=== PATIENT | male | born 1935 | race Caucasian/White ===

== ENCOUNTER 2016-11-17 13:42 | Observation (INO) | payer OTHER ==
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
--- NOTE | 2016-11-17 14:53 | CPEKG ---
Heart Rate: 75 RR Interval: 800 P-R Interval: 200 QRSD Interval: 148 QT Interval: 460 QTC Interval: 514 P [place]: 45 QRS [place]: -35 T Wave [place]: 78 EKG Severity - ABNORMAL ECG - EKG Impression: SINUS RHYTHM EKG Impression: LEFT BUNDLE BRANCH BLOCK Electronically Signed By: Chris Robbins 17-Nov-2016 15:28:51
[2016-11-17 15:17] LABS: APTT 30.2 SEC (23.0-38.0); INR 1.13 (0.83-1.16); PROTIME(PATIENT) 14.4 SEC (12.0-15.0)
[2016-11-17 15:33] LABS: % IMMATURE GRANULYOCYTES 1.1 % (0.0-1.1); ABSOLUTE IMMATURE GRANULOCYTES 0.07 10^3/uL (0.00-0.10); ADD DIFF? NO; ADD MORPH? NO; ADD SCAN? NO; ATYPICAL LYMPHOCYTE FLAG 10 (0-99); FRAGMENT RBC FLAG 0 (0-99); HEMATOCRIT 41.6 % (40.0-51.0); HEMOGLOBIN 14.1 g/dL (13.7-17.5); LEFT SHIFT FLG 10 (0-99); LIPEMIA HEMOLYSIS FLAG 90 (0-99); MEAN CELL HEMOGLOBIN 31.5 pg (27.9-34.1); MEAN CELL HEMOGLOBIN CONCENTR. 33.9 g/dL (32.4-36.7); MEAN CELL VOLUME 93.1 fL (81.5-99.8); MEAN PLATELET VOLUME 10.5 fL (8.7-11.7); PLATELET CLUMPS FLAG 0 (0-99); PLATELET COUNT 152 10^3/uL (150-400); RED BLOOD CELL COUNT 4.47 10^6/uL (4.40-6.38); RED CELL DISTRIBUTION WIDTH 13.3 % (11.5-15.2)
[2016-11-17 15:39] LABS: ANION GAP 12 mEq/L (8-16); CALCIUM 9.3 mg/dL (8.5-10.4); CARBON DIOXIDE 23 mEq/l (22-31); CHLORIDE 107 mEq/L (97-110); CREATININE 1.3 mg/dL (0.7-1.3); GLOMERULAR FILTRATION RATE 53; GLUCOSE 154 mg/dL (70-100); POTASSIUM 4.1 mEq/L (3.5-5.2); SODIUM 142 mEq/L (134-144)
[2016-11-17 15:51] LABS: TROPONIN I < 0.012 ng/mL (0.000-0.034)
[2016-11-17] MEDS ORDERED: ONDANSETRON DISINTEGRATING 4 MG TAB PO PRN (20:28)
[2016-11-17] MEDS ORDERED: ACETAMINOPHEN 325 MG TAB PO PRN (20:28)
[2016-11-17] MEDS ORDERED: ONDANSETRON 4 MG/2 ML VIAL IVP PRN (20:28)
[2016-11-17] MEDS ORDERED: HYDROCODONE/APAP 10/325 TAB PO PRN (20:50)
[2016-11-17] MEDS ORDERED: PRAMIPEXOLE 1 MG TAB PO SCH (21:00)
[2016-11-17] MEDS ORDERED: TAMSULOSIN HCL 0.4 MG CAP PO SCH (21:00)
[2016-11-17] MEDS ORDERED: ROSUVASTATIN CALCIUM 10 MG TAB PO SCH (21:00)
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
[2016-11-17] MEDS: FAMOTIDINE 20 MG TAB PO SCH (21:50)
[2016-11-18 03:56] LABS: ALANINE AMINOTRANSFERASE 27 IU/L (21-72); ALBUMIN 3.1 g/dL (3.5-5.0); ALKALINE PHOSPHATASE 86 IU/L (38-126); ANION GAP 5 mEq/L (8-16); ASPARTATE AMINOTRANSFERASE 25 IU/L (17-59); BILIRUBIN,TOTAL 0.5 mg/dL (0.1-1.4); CALCIUM 8.9 mg/dL (8.5-10.4); CARBON DIOXIDE 25 mEq/l (22-31); CHLORIDE 110 mEq/L (97-110); CREATININE 1.4 mg/dL (0.7-1.3); GLOMERULAR FILTRATION RATE 49; GLUCOSE 109 mg/dL (70-100); POTASSIUM 4.8 mEq/L (3.5-5.2); SODIUM 140 mEq/L (134-144); TOTAL PROTEIN 5.2 g/dL (6.3-8.2)
[2016-11-18 04:03] LABS: TROPONIN I 0.014 ng/mL (0.000-0.034)
[2016-11-18 04:23] LABS: % IMMATURE GRANULYOCYTES 1.3 % (0.0-1.1); ABSOLUTE IMMATURE GRANULOCYTES 0.09 10^3/uL (0.00-0.10); ADD DIFF? NO; ADD MORPH? NO; ADD SCAN? NO; ATYPICAL LYMPHOCYTE FLAG 10 (0-99); FRAGMENT RBC FLAG 0 (0-99); HEMATOCRIT 38.6 % (40.0-51.0); HEMOGLOBIN 12.8 g/dL (13.7-17.5); LEFT SHIFT FLG 10 (0-99); LIPEMIA HEMOLYSIS FLAG 80 (0-99); MEAN CELL HEMOGLOBIN 31.3 pg (27.9-34.1); MEAN CELL HEMOGLOBIN CONCENTR. 33.2 g/dL (32.4-36.7); MEAN CELL VOLUME 94.4 fL (81.5-99.8); MEAN PLATELET VOLUME 10.2 fL (8.7-11.7); PLATELET CLUMPS FLAG 0 (0-99); PLATELET COUNT 151 10^3/uL (150-400); RED BLOOD CELL COUNT 4.09 10^6/uL (4.40-6.38); RED CELL DISTRIBUTION WIDTH 13.4 % (11.5-15.2)
[2016-11-18 04:35] VITALS: RESP 16
[2016-11-18] MEDS ORDERED: LEVOTHYROXINE 75 MCG TAB PO SCH (06:00)
[2016-11-18 07:22] VITALS: BP 132/75; PULSE 58; TEMP 97.5; O2SAT 90
[2016-11-18] MEDS: FAMOTIDINE 20 MG TAB PO SCH (08:48)
[2016-11-18] MEDS ORDERED: LISINOPRIL 20 MG TAB PO SCH (09:00)
--- NOTE | 2016-11-18 09:17 | CPEKG ---
Heart Rate: 68 RR Interval: 882 P-R Interval: 220 QRSD Interval: 156 QT Interval: 448 QTC Interval: 477 P [place]: 57 QRS [place]: -40 T Wave [place]: 103 EKG Severity - ABNORMAL ECG - EKG Impression: SINUS RHYTHM EKG Impression: FIRST DEGREE AV BLOCK EKG Impression: LEFT BUNDLE BRANCH BLOCK Electronically Signed By: Laith Wolf 21-Nov-2016 09:03:16
--- NOTE | 2016-11-18 10:48 | ECHO ---
[email or web address] [address] [address] Main: [phone] Fax: Transthoracic Echocardiogram Name: YULIYA SHARMA MR#: [id number] Study Date: 11/18/2016 Study Time: 09:26 AM Date of : 1935 Age: 81 year(s) Height: 172.7 cm (68 in.) Weight: 97.52 kg (215 lb.) BSA: 2.11 m2 Gender: Male Examination: Echo Indication: Cardiac: syncope Image Quality: Contrast: Requested by: Gaston Sun BP: 132 mmHg/75 mmHg Heart Rate: Rhythm: Indication: Cardiac: syncope Procedure Staff Silk Presser: Daniela Charles Physician: Kurt Gonsalez Requesting Provider: Conclusions: No pericardial effusion preserved left ventricular systolic function with septal dyskinesis consistent with underlying bundle branch block. Mitral annular calcification aortic valve calcification without significant stenosis. Study does not suggest specific etiology for syncope other than clear conduction abnormality. Measurements: Chambers Valvular Assessment AV/MV Valvular Assessment TV/PV Normal Normal Normal Name Value Range Name Value Range Name Value Range Ao Lina (MM): 3.7 cm (2.2 cm-3.7 AV meanP mmHg ( - ) cm) MV E Vmax: 0.49 m/s ( - ) IVSd (2D): 1.1 cm (0.6 cm-1.1 MV A Vmax: 0.96 m/s ( - ) cm) MV E/A: 0.51 ( - ) LVDd (2D): 5.2 cm (4.2 cm-5.9 cm) LVPWd (2D): 1.0 cm (0.6 cm-1 cm) LVEF (MOD4): 63 % (>=55 %) Visual EF: 65 % Continued Measurements: Chambers Valvular Assessment AV/MV Name Value Name Value LADs: 4.2 cm MV E/E' Septal: 9.60 LADs Lon.0 cm LA Area: 23.2 cm2 Patient: YULIYA SHARMA Study Date: 11/18/2016 Page 1 of 2 09:26 AM Findings: Left Ventricle: Normal size left ventricle. The ejection fraction is visually estimated to be 65 %. LV septal motion consistent with conduction abnormality.. Left Atrium: The left atrium is normal in size. Right Atrium: The right atrium is normal in size. Mitral Valve: Mildly calcific posterior mitral leaflet.. Aortic Valve: The aortic valve is tri-leaflet. Mild aortic valve regurgitation is present. There is mild calcification of the NCC of the aortic valve.. Tricuspid Valve: The tricuspid valve appears normal. Trivial tricuspid valve regurgitation. Pulmonic Valve: The pulmonic valve is normal in appearance. Trivial pulmonic valve regurgitation. (No Signature Object) Patient: YULIYA SHARMA Study Date: 11/18/2016 Page 2 of 2 09:26 AM [id number]
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
--- NOTE | 2016-11-18 14:40 | ASDISCHSUM ---
Discharge Information Plan Status:Home with No Needs Medically Cleared to Leave:11/18/2016 Discharge Date:11/18/2016 11:40 AM CM D/C Disposition: ADT D/C Disposition:Home, Routine, Self-Care Projected Discharge Date:11/18/2016 12:00 AM Transportation at D/C: Discharge Delay Reason: Follow-Up Date:11/18/2016 12:00 AM Discharge Slot: Final Diagnosis: Placement Information Patient Contact Information Contact Name:CRUZ Relationship: Address: Work Phone: City:[place] Alternate Phone: State/Zip Code:[place] [address] Email: Financial Information Financial Class: Primary Plan Desc:MEDICARE OUTPATIENT Primary Plan Number:[id number] Secondary Plan Desc: Secondary Plan Number:[id number] Assessment Information Intervention Information Intervention Type:*VASQUEZ-Signed Date of Service:11/18/2016 10:47 AM Patient Type:Observation Staff Member:Radha Rizvi Hours: Discipline: Severity: Comment:
== END 2016-11-18 11:40 | disposition home or self-care (01) ==
LOC: EDUNIT# → F2W 18:47
PROVIDERS: ADMIT Internal Medicine; ATTEND Internal Medicine
DX: R55 Syncope and collapse (principal); G47.419 Narcolepsy without cataplexy; I44.7 Left bundle-branch block, unspecified; G47.33 Obstructive sleep apnea (adult) (pediatric); I10 Essential (primary) hypertension; E03.9 Hypothyroidism, unspecified; F43.12 Post-traumatic stress disorder, chronic; E78.5 Hyperlipidemia, unspecified
CPT/HCPCS: 71010; 92523; 93005; 93306; 99285; G0378; G9165; G9166; G9167